=== PATIENT | male | born 1960 | race Hispanic/Latino ===

== ENCOUNTER 2018-07-01 06:07 | Emergency (ER) | payer BC ==
[2018-07-01 06:56] LABS: Absolute Lymphocytes (CBC) 1.7 K/uL (0.7-4.9); Absolute Monocytes 0.6 K/uL (0.1-1.3); Basophils % 0.6 % (0-1.3); Hematocrit 48.5 % (39.6-49.0); Lymphocytes % 24.7 % (15.3-44.8); MPV 9.5 fL (7.6-11.3); Monocytes % 8.7 % (3.3-12.3); RBC Red Blood Cell Count 5.53 M/uL (4.33-5.43)
[2018-07-01 06:59] LABS: Protime INR 0.99
[2018-07-01] MEDS ORDERED: ONDANSETRON 4 MG/2 ML VIAL ONE (07:08)
[2018-07-01 07:16] LABS: ALT/SGPT 38 U/L (12-78); AST/SGOT 15 U/L (15-37); Albumin 3.9 g/dL (3.4-5.0); Alkaline Phosphatase 104 U/L (45-117); BUN Blood Urea Nitrogen 17 mg/dL (7-18); Bicarbonate 27 mmol/L (21-32); Bilirubin Direct 0.2 mg/dL (0-0.2); Bilirubin Total 0.9 mg/dL (0.2-1.0); Glucose Level 115 mg/dL (74-106); NT PRO-BNP 115 pg/mL (<125); Potassium 3.3 mmol/L (3.5-5.1); Protein, Total 7.3 g/dL (6.4-8.2); Sodium Level 142 mmol/L (136-145); Troponin (Emerg Dept Use Only) < 0.02 ng/mL (0.0-0.045)
--- NOTE | 2018-07-01 09:12 | RAD REPORT ---
EXAM DESCRIPTION: CT - Head Brain Wo Cont - 07/01/2018 7:04 am CLINICAL HISTORY: Dizziness COMPARISON: None. TECHNIQUE: Computed axial tomography of the head was obtained. IV contrast was not requested. All CT scans are performed using dose optimization technique as appropriate and may include automated exposure control or mA/KV adjustment according to patient size. FINDINGS: An intracranial bleed is not seen . The ventricles are normal in caliber. No extra-axial fluid collection is noted. Fluid is present within the left maxillary sinus. Mucoperiosteal thickening also involves maxillary e thmoid sinuses. Fluid within mastoid is not seen IMPRESSION: No acute intracranial abnormality is seen. If patient's symptoms persist MRI of the bra in would be recommended. Acute and chronic sinusitis
--- NOTE | 2018-07-01 09:17 | ER ---
Nurse's Notes [facility] Name: Adrian Kang Age: 58 yrs Sex: Male : 1960 Arrival Date: 07/01/2018 Time: 06:11 Bed 19 Private MD: Cullen Pierson Diagnosis: Dizziness and giddiness Presentation: 07/01 06:13 Presenting complaint: Patient states: I have had double vision and dizziness since jb4 yesterday at 8pm. 06:13 Transition of care: patient was not received from another setting of care. Onset of jb4 symptoms was June 30, 2018. Risk Assessment: Do you want to hurt yourself or someone else? Patient reports no desire to harm self or others. Initial Sepsis Screen: Does the patient meet any 2 criteria? No. Patient's initial sepsis screen is negative. Does the patient have a suspected source of infection? No. Patient's initial sepsis screen is negative. Care prior to arrival: None. 06:13 Method Of Arrival: Ambulatory jb4 06:13 Acuity: YOEL 3 jb4 Triage Assessment: 06:13 General: Appears in no apparent distress. comfortable, Behavior is calm, cooperative, jb4 appropriate for age, Pt reports that double vision and dizziness started approximately 2000 yesterday. This morning upon awakening he took his blood pressure medication and reports that his double vision cleared up. Denies pain. Currently denies having double vision or dizziness.. Pain: Denies pain. EENT: No deficits noted. Neuro: Level of Consciousness is awake, alert, obeys commands, Oriented to person, place, time, situation, Moves all extremities. Full function Gait is steady, Speech is normal, Facial symmetry appears normal, Pupils are PERRLA. Cardiovascular: Patient's skin is warm and dry. Rhythm is sinus rhythm. Respiratory: Airway is patent Respiratory effort is even, unlabored, Respiratory pattern is regular, symmetrical. GI: No signs and/or symptoms were reported involving the gastrointestinal system. : No signs and/or symptoms were reported regarding the genitourinary system. Derm: Skin is intact, Skin is pink, warm \T\ dry. Musculoskeletal: Circulation, motion, and sensation intact. Range of motion: intact in all extremities. Historical: - Allergies: 06:13 Bactrim; jb4 06:13 seasonal; jb4 - Home Meds: 06:13 losartan 100 mg oral tab [Active]; Bystolic oral oral [Active]; jb4 - PMHx: 06:13 Hypertension; gallstones; jb4 - PSHx: 06:13 Cholecystectomy; jb4 - Immunization history:: Adult Immunizations up to date, Flu vaccine is not up to date. - Social history:: Smoking status: Patient/guardian denies using tobacco, Patient uses alcohol, weekly. - Ebola Screening: : No symptoms or risks identified at this time. Screenin:13 Abuse screen: Denies threats or abuse. Nutritional screening: No deficits noted. jb4 Tuberculosis screening: No symptoms or risk factors identified. Fall Risk None identified. Assessment: 06:13 General: see triage assessment.. jb4 06:40 Reassessment: Pt reports being nauseous, provider notified, see [facility] for orders. jb4 07:08 Reassessment: Patient appears in no apparent distress at this time. Patient and/or [facility] family updated on plan of care and expected duration. Pain level reassessed. Patient is alert, oriented x 3, equal unlabored respirations, skin warm/dry/pink. Reports nausea, medicated as ordered. 08:00 Reassessment: Patient appears in no apparent distress at this time. Patient and/or jl7 family updated on plan of care and expected duration. Pain level reassessed. Patient is alert, oriented x 3, equal unlabored respirations, skin warm/dry/pink. Patient states symptoms have improved. 09:00 Reassessment: Patient appears in no apparent distress at this time. No changes from [facility] previously documented assessment. Patient and/or family updated on plan of care and expected duration. Pain level reassessed. Patient is alert, oriented x 3, equal unlabored respirations, skin warm/dry/pink. Vital Signs: 06:13 BP 144 / 77; Pulse 68; Resp 16; Temp 97.9(O); Pulse Ox 97% on R/A; Weight 81.65 kg (R); jb4 Height 5 ft. 8 in. (172.72 cm) (R); Pain 0/10; 07:08 BP 146 / 79; Pulse 63; Resp 16 S; Pulse Ox 97% on R/A; jl7 08:14 BP 124 / 72 Supine; Pulse 51; Resp 16 S; Pulse Ox 99% on R/A; jl7 08:16 BP 143 / 82 Sitting; Pulse 54; Resp 16 S; Pulse Ox 99% on R/A; Pain 0/10; jl7 08:18 BP 137 / 75 Standing; Pulse 53; Resp 16 S; Pulse Ox 99% on R/A; jl7 09:23 BP 124 / 74; Pulse 59; Resp 16 S; Pulse Ox 100% on R/A; Pain 0/10; jl7 06:13 Body Mass Index 27.37 (81.65 kg, 172.72 cm) jb4 NIH Stroke Scale Scores: 08:16 NIHSS Score: 0 kb ED Course: 06:11 Patient arrived in ED. es 06:12 Cullen Pierson MD is Private Physician. es 06:13 Arm band placed on left wrist. jb4 06:13 Patient has correct armband on for positive identification. Placed in gown. Bed in low jb4 position. Call light in reach. Side rails up X 1. Pulse ox on. NIBP on. 06:20 Vianney León FNP-C is PHCP. kb 06:20 Esteban Garcias MD is Attending Physician. kb 06:25 Initial lab(s) drawn, by me, sent to lab. Inserted saline lock: 20 gauge in right jb4 forearm, using aseptic technique. Blood collected. 06:34 Triage completed. jb4 06:41 CT Head Brain wo Cont Sent. ms 07:04 CT Head Brain wo Cont In Process Unspecified. EDMS 07:07 Brenda Weaver, RN is Primary Nurse. jl7 09:16 Cullen Pierson MD is Referral Physician. kb 09:23 No provider procedures requiring assistance completed. IV discontinued, intact, jl7 bleeding controlled, No redness/swelling at site. Pressure dressing applied. Administered Medications: 07:08 Drug: Zofran 4 mg Route: IVP; Site: right forearm; jl7 07:30 Follow up: Response: No adverse reaction; Nausea is decreased jl7 Point of Care Testing: Blood Glucose: 06:13 Blood Glucose: 111 mg/dL; jb4 Ranges: Outcome: 09:16 Discharge ordered by . kb 09:23 Discharged to home ambulatory. jl7 09:23 Condition: stable 09:23 Discharge instructions given to patient, family, Instructed on discharge instructions, follow up and referral plans. Demonstrated understanding of instructions, follow-up care. 09:24 Patient left the ED. jl7 NIH Stroke Scale - NIH Stroke Score Date: 07/01/2018 Time: 08:16 Total Score = 0 1a. Level of Consciousness (LOC) - 0(Alert) 1b. Level of Consciousness (LOC) (Year \T\ Age) - 0(Both) 1c. LOC Commands (Open \T\ Closes Eyes/Whale Trainer) - 0(Both) 2. Best Gaze (Lateral Gaze Paresis) - 0(Normal) 3. Visual Field Loss - 0(No visual loss) 4. Facial Palsy - 0(Normal) 5a. Left Arm: Motor (10-second hold) - 0(No drift) 5b. Right Arm: Motor (10-second hold) - 0(No drift) 6a. Left Leg: Motor (5-second hold - always test supine) - 0(No drift) 6b. Right Leg: Motor (5-second hold - always test supine) - 0(No drift) 7. Limb Ataxia (finger/nose \T\ heel/foss - test with eyes open) - 0(Absent) 8. Sensory Loss (pinprick arms/legs/face) - 0(Normal) 9. Best Language: Aphasia (description/naming/reading) - 0(No aphasia) 10. Dysarthria (speech clarity - read or repeat words) - 0(Normal) 11. Extinction and Inattention (visual/tactile/auditory/spatial/personal) - 0(No abnormality) Initials: kb Signatures: Dispatcher [employer] EDVianney Quezada, SUPERVISOR OF COMMUNICATIONS-C SUPERVISOR OF COMMUNICATIONS-CkCallie Banuelos Maria ms Bryson, James RN RN jb4 Brenda Weaver RN RN jl7 Corrections: (The following items were deleted from the chart) 06:43 06:13 General: Appears in no apparent distress. comfortable, Behavior is calm, toñito cooperative, appropriate for age, toñito 08:16 08:00 BP 121 / 66; Pulse 52bpm; Resp 16bpm; Spontaneous; Pulse Ox 99% RA; Pain jl7 0/10; jl7 08:26 08:16 BP 121 / 66; Pulse 52bpm; Resp 16bpm; Spontaneous; Pulse Ox 99% RA; Pain jl7 0/10; jl7
--- NOTE | 2018-07-01 09:18 | EDPHYS ---
Physician Documentation [facility] Name: Adrian Kang Age: 58 yrs Sex: Male : 1960 Arrival Date: 07/01/2018 Time: 06:11 Bed 19 Private MD: Cullen Pierson ED Physician Esteban Garcias HPI: 07/01 08:17 This 58 yrs old Male presents to ER via Ambulatory with complaints of Double kb vision, Dizziness, High Blood Pressure. 08:18 The patient presents with lightheadedness. Onset: The symptoms/episode began/occurred kb last night. Context: occurred at home, occurred while the patient was at rest. Modifying factors: The symptoms are alleviated by nothing, the symptoms are aggravated by nothing. Associated signs and symptoms: Pertinent positives: "shaky." blurred vision when he woke up, now resolved. Severity of symptoms: At their worst the symptoms were moderate in the emergency department the symptoms have improved. Patient's baseline: Neuro: alert and fully oriented, Motor: no deficits, Ambulation: walks without assistance, Speech: normal. The patient has not experienced similar symptoms in the past. The patient has not recently seen a physician. 08:19 Pt reports blurred vision and lightheadedness that started at 2000 last night. States kb he still had symptoms when he woke up this morning so he took his losartan and came in to get checked out. Reports he still has slight lightheadedness, but vision is normal. Historical: - Allergies: 06:13 Bactrim; jb4 06:13 seasonal; jb4 - Home Meds: 06:13 losartan 100 mg oral tab [Active]; Bystolic oral oral [Active]; jb4 - PMHx: 06:13 Hypertension; gallstones; jb4 - PSHx: 06:13 Cholecystectomy; jb4 - Immunization history:: Adult Immunizations up to date, Flu vaccine is not up to date. - Social history:: Smoking status: Patient/guardian denies using tobacco, Patient uses alcohol, weekly. - Ebola Screening: : No symptoms or risks identified at this time. ROS: 08:16 Constitutional: Negative for fever, chills, and weight loss, Eyes: Negative for injury, kb pain, redness, and discharge, ENT: Negative for injury, pain, and discharge, Neck: Negative for injury, pain, and swelling, Cardiovascular: Negative for chest pain, palpitations, and edema, Respiratory: Negative for shortness of breath, cough, wheezing, and pleuritic chest pain, Abdomen/GI: Negative for abdominal pain, nausea, vomiting, diarrhea, and constipation, Back: Negative for injury and pain, : Negative for injury, bleeding, discharge, and swelling, MS/Extremity: Negative for injury and deformity, Skin: Negative for injury, rash, and discoloration. 08:16 Neuro: Positive for dizziness, lightheaded, "shaky". Exam: 06:36 ECG was reviewed by the Attending Physician. kb 08:16 Constitutional: This is a well developed, well nourished patient who is awake, alert, kb and in no acute distress. Head/Face: Normocephalic, atraumatic. Eyes: Pupils equal round and reactive to light, extra-ocular motions intact. Lids and lashes normal. Conjunctiva and sclera are non-icteric and not injected. Cornea within normal limits. Periorbital areas with no swelling, redness, or edema. ENT: Nares patent. No nasal discharge, no septal abnormalities noted. Tympanic membranes are normal and external auditory canals are clear. Oropharynx with no redness, swelling, or masses, exudates, or evidence of obstruction, uvula midline. Mucous membranes moist. Neck: Trachea midline, no thyromegaly or masses palpated, and no cervical lymphadenopathy. Supple, full range of motion without nuchal rigidity, or vertebral point tenderness. No Meningismus. Chest/axilla: Normal chest wall appearance and motion. Nontender with no deformity. No lesions are appreciated. Cardiovascular: Regular rate and rhythm with a normal S1 and S2. No gallops, murmurs, or rubs. Normal PMI, no JVD. No pulse deficits. Respiratory: Lungs have equal breath sounds bilaterally, clear to auscultation and percussion. No rales, rhonchi or wheezes noted. No increased work of breathing, no retractions or nasal flaring. Abdomen/GI: Soft, non-tender, with normal bowel sounds. No distension or tympany. No guarding or rebound. No evidence of tenderness throughout. Skin: Warm, dry with normal turgor. Normal color with no rashes, no lesions, and no evidence of cellulitis. MS/ Extremity: Pulses equal, no cyanosis. Neurovascular intact. Full, normal range of motion. Neuro: Awake and alert, GCS 15, oriented to person, place, time, and situation. Cranial nerves II-XII grossly intact. Motor strength 5/5 in all extremities. Sensory grossly intact. Cerebellar exam normal. Normal gait. Vital Signs: 06:13 BP 144 / 77; Pulse 68; Resp 16; Temp 97.9(O); Pulse Ox 97% on R/A; Weight 81.65 kg (R); jb4 Height 5 ft. 8 in. (172.72 cm) (R); Pain 0/10; 07:08 BP 146 / 79; Pulse 63; Resp 16 S; Pulse Ox 97% on R/A; jl7 08:14 BP 124 / 72 Supine; Pulse 51; Resp 16 S; Pulse Ox 99% on R/A; jl7 08:16 BP 143 / 82 Sitting; Pulse 54; Resp 16 S; Pulse Ox 99% on R/A; Pain 0/10; jl7 08:18 BP 137 / 75 Standing; Pulse 53; Resp 16 S; Pulse Ox 99% on R/A; jl7 09:23 BP 124 / 74; Pulse 59; Resp 16 S; Pulse Ox 100% on R/A; Pain 0/10; jl7 06:13 Body Mass Index 27.37 (81.65 kg, 172.72 cm) jb4 NIH Stroke Scale Scores: 08:16 NIHSS Score: 0 kb MDM: 06:20 Patient medically screened. 08:16 Data reviewed: vital signs, nurses notes. Data interpreted: Pulse oximetry: on room air kb is 97 %. Interpretation: normal. 09:16 Counseling: I had a detailed discussion with the patient and/or guardian regarding: the kb historical points, exam findings, and any diagnostic results supporting the discharge/admit diagnosis, lab results, radiology results, the need for outpatient follow up, a family practitioner, a neurologist, to return to the emergency department if symptoms worsen or persist or if there are any questions or concerns that arise at home. 09:17 ED course: Pt reports all symptoms have resolved and he is feeling better. kb 07/01 06:20 Order name: Basic Metabolic Panel; Complete Time: 07:17 kb 07/01 06:20 Order name: CBC with Diff; Complete Time: 07:13 kb 04/02 06:20 Order name: LFT's; Complete Time: 07:17 kb 07/01 06:20 Order name: Magnesium; Complete Time: 07:17 kb 07/01 06:20 Order name: NT PRO-BNP; Complete Time: 07:17 kb 07/01 06:20 Order name: PT-INR; Complete Time: 07:13 kb 07/01 06:20 Order name: Troponin (emerg Dept Use Only); Complete Time: 07:17 kb 07/01 06:20 Order name: EKG; Complete Time: 06:21 kb 07/01 06:20 Order name: Cardiac monitoring; Complete Time: 06:40 kb 07/01 06:20 Order name: EKG - Nurse/Tech; Complete Time: 06:40 kb 07/01 06:20 Order name: IV Saline Lock; Complete Time: 06:40 kb 07/01 06:20 Order name: Labs collected and sent; Complete Time: 06:40 kb 07/01 06:20 Order name: CT Head Brain wo Cont; Complete Time: 09:14 kb 07/01 06:20 Order name: O2 Per Protocol; Complete Time: 06:41 kb 07/01 06:20 Order name: O2 Sat Monitoring; Complete Time: 06:41 kb 07/01 08:16 Order name: Orthostatics; Complete Time: 08:24 kb EC:36 Rate is 61 beats/min. Rhythm is regular, Normal Sinus Rhythm with No ectopy. QRS [place] kb is Normal. CA interval is normal at 160 msec. QRS interval is normal at 96 msec. QT interval is normal at 406 msec. Clinical impression: Normal ECG. Interpreted by me. Reviewed by me. Administered Medications: 07:08 Drug: Zofran 4 mg Route: IVP; Site: right forearm; jl7 07:30 Follow up: Response: No adverse reaction; Nausea is decreased jl7 Point of Care Testing: Blood Glucose: 06:13 Blood Glucose: 111 mg/dL; jb4 Ranges: Critical Glucose Levels:Adult <50 mg/dl or >400 mg/dl <40 mg/dl or >180 mg/dl Disposition: 07/02 07:23 Co-signature as Attending Physician, Esteban Garcias MD I agree with the assessment and tw4 plan of care. Disposition: 07/01/18 09:16 Discharged to Home. Impression: Dizziness and giddiness. - Condition is Stable. - Discharge Instructions: Dizziness, [id number]. - Medication Reconciliation Form, Thank You Letter, Antibiotic Education, Prescription Opioid Use form. - Follow up: Emergency Department; When: As needed; Reason: Trouble breathing. Follow up: Cullen Pierson MD; When: 2 - 3 days; Reason: Recheck today's complaints, Continuance of care, Re-evaluation by your physician. NIH Stroke Scale - NIH Stroke Score Date: 07/01/2018 Time: 08:16 Total Score = 0 1a. Level of Consciousness (LOC) - 0(Alert) 1b. Level of Consciousness (LOC) (Year \\T\\ Age) - 0(Both) 1c. LOC Commands (Open \\T\\ Closes Eyes/Roller Skate Assembler) - 0(Both) 2. Best Gaze (Lateral Gaze Paresis) - 0(Normal) 3. Visual Field Loss - 0(No visual loss) 4. Facial Palsy - 0(Normal) 5a. Left Arm: Motor (10-second hold) - 0(No drift) 5b. Right Arm: Motor (10-second hold) - 0(No drift) 6a. Left Leg: Motor (5-second hold - always test supine) - 0(No drift) 6b. Right Leg: Motor (5-second hold - always test supine) - 0(No drift) 7. Limb Ataxia (finger/nose \\T\\ heel/foss - test with eyes open) - 0(Absent) 8. Sensory Loss (pinprick arms/legs/face) - 0(Normal) 9. Best Language: Aphasia (description/naming/reading) - 0(No aphasia) 10. Dysarthria (speech clarity - read or repeat words) - 0(Normal) 11. Extinction and Inattention (visual/tactile/auditory/spatial/personal) - 0(No abnormality) Initials: kb Signatures: Dispatcher [employer] EDVianney Quezada, HOME SCHOOL TEACHER-C HOME SCHOOL TEACHER-CkCullen Saunders, RN RN jb4 Brenda Weaver RN RN jl7 Esteban Garcias MD MD tw4 Corrections: (The following items were deleted from the chart) 07/01 09:24 09:16 07/01/2018 09:16 Discharged to Home. Impression: Dizziness and giddiness. jl7 Condition is Stable. Forms are Medication Reconciliation Form, Thank You Letter, Antibiotic Education, Prescription Opioid Use. Follow up: Emergency Department; When: As needed; Reason: Trouble breathing. Follow up: Cullen Pierson; When: 2 - 3 days; Reason: Recheck today's complaints, Continuance of care, Re-evaluation by your physician. kb
== END 2018-07-01 09:24 | disposition home or self-care (01) ==
LOC: ER 06:07
DX: R42 Dizziness and giddiness (principal); I10 Essential (primary) hypertension; Z88.1 Allergy status to other antibiotic agents
CPT/HCPCS: 36415; 70450; 80048; 80076; 82962; 83735; 83880; 84484; 85025; 85610; 93005; 96374; 99284; J2405

== ENCOUNTER 2019-12-14 10:44 | Emergency (ER) | payer BC ==
--- OUTSIDE RECORDS SUMMARY | 2019-12-14 10:49 | XMS REPORT | Summary of Care ---
:1960 Author Organization [facility] Address [address] [place] [id number] Care Team Providers Name Role Phone Cullen Pierson MD Primary Care Provider [phone] Reason for Visit Reason Comments Refill Request Encounter Details Date Type Department Care Team Description 09/23/2019 Refill [facility] Cullen Garibay MD Refill Request - [address] [place] [address] Dr [place] [place] [address] [place] [address] [phone] Allergies Active Allergy Reactions Severity Noted Date Comments Sulfa (Sulfonamide Antibiotics) Unknown - See comments 02/04/2015 documented as of this encounter (statuses as of 09/23/2019) Medications Medication Sig Dispensed Refills Start Date End Date Status losartan 100 mg Take 100 mg by 0 Active tablet mouth daily. atorvastatin 10 mg 0 07/15/2018 Active tablet nebivolol Take 10 mg by 0 Active (BYSTOLIC) 10 mg mouth daily. tablet BABY ASPIRIN ORAL Take 81 mg by 0 Active mouth daily. ALBUTEROL 90 INHALE 2 PUFFS 8.5 g 5 06/26/2019 A ctive mcg/actuation BY MOUTH EVERY inhalerIndications 6 HOURS : Bronchitis with NEEDED FOR bronchospasm WHEEZING OR SHORTNESS OF BREATH ADVAIR DISKUS INHALE 1 PUFF 60 Each 0 09/23/2019 A ctive 250-50 mcg/dose BY MOUTH TWICE inhalation DAILY diskIndications: Mild intermittent asthma without complication ADVAIR DISKUS INHALE 1 PUFF 60 Each 0 08/20/2019 09/23/2019 Discontinued 250-50 mcg/dose BY MOUTH TWICE inhalation DAILY diskIndications: Mild intermittent asthma without complication documented as of this encounter (statuses as of 09/23/2019) Active Problems Problem Noted Date Mild intermittent asthma 02/04/2015 documented as of this encounter (statuses as of 09/23/2019) Immunizations Name Administration Dates Next Due Influenza Virus Vaccine Quad .5 mL IM 6+ MO 01/20/2019 documented as of this encounter Social History Tobacco Use Types Packs/Day Years Used Date Former Smoker Quit: 02/05/20 06 Smokeless Tobacco: Never Used Alcohol Use Drinks/Week oz/Week Comments Yes 0 Standard drinks or equivalent 0.0 twice a week Sex Assigned at Date Recorded Not on file Job Start Date Occupation Industry Not on file Not on file Not on file Travel History Travel Start Travel End No recent travel history available. documented as of this encounter Last Filed Vital Signs Not on filedocumented in this encounter Plan of Treatment Health Maintenance Due Date Last Done Comments HEPATITIS C (HCV) SCREEN 1960 PNEUMOCOCCAL 0-64 YEARS COMBINED SERIES (1 of 1 - 02/24/1966 PPSV23) DTaP,Tdap,and Td Vaccines (1 - Tdap) 02/24/1971 COLONOSCOPY 02/24/2010 Zoster Recombinant Vaccine (SHINGRIX) (1 of 2) 02/24/2010 LUNG CANCER SCREEN: Recommended for age 55-80 with 30 02/24/2015 + pack year history Depression Screening 03/12/2020 03/12/2019 INFLUENZA VACCINE Completed 01/20/2019 documented as of this encounter Results Not on filedocumented in this encounter Visit Diagnoses Diagnosis Mild intermittent asthma without complic ation Unspecified asthma documented in this encounter Insurance Payer Benefit Plan Subscriber ID Effective Dates Phone Address Type / Group [facility] OF [facility] [id number] 2012-Anil [phone] [address] [place] [id number] [place] [address] documented as of this encounter
--- OUTSIDE RECORDS SUMMARY | 2019-12-14 10:49 | XMS REPORT | Summary of Care ---
:1960 Author Organization [facility] - [facility] Address [address] [place] [address] Care Team Providers Name Role Phone Cullen Pierson MD Primary Care Provider [phone] Reason for Visit Reason Comments Rx Concern/Question Encounter Details Date Type Department Care Team Description 10/19/2019 Telephone [facility] Family Cullen Pierson Rx Conc bismark/Question Medicine - Davie Aj MD [address] [place] [address] Dr livingston [address] [place] [address] [place] [address] [place] [phone] Allergies Active Allergy Reactions Severity Noted Date Comments Sulfa (Sulfonamide Antibiotics) Unknown - See comments 02/04/2015 documented as of this encounter (statuses as of 10/21/2019) Medications Medication Sig Dispensed Refills Start Date End Date Status losartan 100 mg tablet Take 100 mg by 0 Active mouth daily. atorvastatin 10 mg 0 07/15/2018 Active tablet nebivolol (BYSTOLIC) Take 10 mg by 0 Active 10 mg tablet mouth daily. BABY ASPIRIN ORAL Take 81 mg by 0 Active mouth daily. ALBUTEROL 90 INHALE 2 PUFFS BY 8.5 g 5 06/26/2019 Active mcg/actuation MOUTH EVERY 6 inhalerIndications: HOURS NEEDED Bronchitis with FOR WHEEZING OR bronchospasm SHORTNESS OF BREATH ADVAIR DISKUS 250-50 INHALE 1 PUFF BY 60 Each 0 10/06/2019 Active mcg/dose inhalation MOUTH TWICE DAILY diskIndications: Mild intermittent asthma without complication documented as of this encounter (statuses as of 10/21/2019) Active Problems Problem Noted Date Mild intermittent asthma 02/04/2015 documented as of this encounter (statuses as of 10/21/2019) Immunizations Name Administration Dates Next Due Influenza [...] with 30 02/24/2015 + pack year history INFLUENZA VACCINE (#1) 2019 01/20/2019 Depression Screening 03/12/2020 03/12/2019 documented as of this encounter Results Not on filedocumented in this encounter Insurance Payer Benefit Plan Subscriber ID Effective Dates Phone Address Type / Group [place] [id number] 2012-Anil [phone] [address] PPO/POS [facility] 7 [id number] [place] [address] documented as of this encounter
--- OUTSIDE RECORDS SUMMARY | 2019-12-14 10:49 | XMS REPORT | Summary of Care ---
:1960 Author Organization [facility] - [facility] Address [address] [place] [address] Care Team Providers Name Role Phone Cullen Pierson MD Primary Care Provider [phone] Reason for Visit Reason Comments Refill Request Encounter Details Date Type Department Care Team Description 10/06/2019 Refill [facility] Family Medicine Cullen Garibay MD Refill Request - [address] [place] [address] Dr livingston [facility] [address] [place] [address] [phone] Allergies Active Allergy Reactions Severity Noted Date Comments Sulfa (Sulfonamide Antibiotics) Unknown - See comments 02/04/2015 documented as of this encounter (statuses as of 10/06/2019) Medications Medication Sig Dispensed Refills Start Date [...] DISKUS INHALE 1 PUFF 60 Each 0 10/06/2019 A ctive 250-50 mcg/dose BY MOUTH TWICE inhalation DAILY diskIndications: Mild intermittent asthma without complication ADVAIR DISKUS INHALE 1 PUFF 60 Each 0 09/23/2019 10/06/2019 Discontinued 250-50 mcg/dose BY MOUTH TWICE inhalation DAILY diskIndications: Mild intermittent asthma without complication documented as of this encounter (statuses as of 10/06/2019) Active Problems Problem Noted Date Mild intermittent asthma 02/04/2015 documented as of this encounter (statuses as of 10/06/2019) Immunizations Name Administration Dates Next Due Influenza [...] Phone Address Type / Group BCBS OF [facility] [id number] 2012-Anil [phone] [address] PPO/POS [place] 7 [id number] [place] [address] documented as of this encounter
--- OUTSIDE RECORDS SUMMARY | 2019-12-14 10:49 | XMS REPORT | Summary of Care ---
:1960 Author Organization [facility] - [facility] Address [address] [place] [address] Care Team Providers Name Role Phone Cullen Pierson MD Primary Care Provider [phone] Reason for Visit Reason Comments Assessment Encounter Details Date Type Department Care Team Description 10/13/2019 Telephone [facility] Pediatric and Cullen Martínez MD Assessment Adult Primary Care- [address] [place] [address] [place] [address], [address] [place] [address] Allergies Active Allergy Reactions Severity Noted Date Comments Sulfa (Sulfonamide Antibiotics) Unknown - See comments 02/04/2015 documented as of this encounter (statuses as of 10/13/2019) Medications Medication Sig Dispensed Refills Start Date [...] as of this encounter (statuses as of 10/13/2019) Active Problems Problem Noted Date Mild intermittent asthma 02/04/2015 documented as of this encounter (statuses as of 10/13/2019) Immunizations Name Administration Dates Next Due Influenza [...] Type / Group BCBS OF [place] [id number] 2012-Anil [phone] [address] PPO/POS [facility] 7 [id number] [place] [address] documented as of this encounter
--- OUTSIDE RECORDS SUMMARY | 2019-12-14 10:49 | XMS REPORT | Summary of Care ---
:1960 Author Organization [facility] - [facility] Address [address] [place] [address] Care Team Providers Name Role Phone Cullen Pierson MD Primary Care Provider [phone] Reason for Visit Reason Comments Rx Concern/Question Encounter Details Date Type Department Care Team Description 10/07/2019 Telephone [facility] AF[facility] Family Cullen Pierson Rx Conc bismark/Question Medicine - Davie Aj MD [address] [place] [address] Dr livingston [address] [place] [address] [place] [address] [place] [phone] Allergies Active Allergy Reactions Severity Noted Date Comments Sulfa (Sulfonamide Antibiotics) Unknown - See comments 02/04/2015 documented as of this encounter (statuses as of 10/07/2019) Medications Medication Sig Dispensed Refills Start Date [...] as of this encounter (statuses as of 10/07/2019) Active Problems Problem Noted Date Mild intermittent asthma 02/04/2015 documented as of this encounter (statuses as of 10/07/2019) Immunizations Name Administration Dates Next Due Influenza [...] Type / Group BCBS OF [place] [id number] 2012-Anil [phone] [address] PPO/POS [facility] 7 [id number] [place] [address] documented as of this encounter
--- OUTSIDE RECORDS SUMMARY | 2019-12-14 10:49 | XMS REPORT | Summary of Care ---
:1960 Author Organization [facility] - [facility] Address [address] [place] [address] Care Team Providers Name Role Phone Cullen Pierson MD Primary Care Provider [phone] Reason for Visit Reason Comments Assessment Encounter Details Date Type Department Care Team Description 10/14/2019 Telephone [facility] Pediatric and Cullen Martínez MD Assessment Adult Primary Care- [address] [place] [address] [place] [address], [address] [place] [address] Allergies Active Allergy Reactions Severity Noted Date Comments Sulfa (Sulfonamide Antibiotics) Unknown - See comments 02/04/2015 documented as of this encounter (statuses as of 10/15/2019) Medications Medication Sig Dispensed Refills Start Date [...] as of this encounter (statuses as of 10/15/2019) Active Problems Problem Noted Date Mild intermittent asthma 02/04/2015 documented as of this encounter (statuses as of 10/15/2019) Immunizations Name Administration Dates Next Due Influenza [...] Type / Group BCBS OF [place] [id number] 2012-Anil [phone] [address] PPO/POS [facility] 7 [id number] [place] [address] documented as of this encounter
--- OUTSIDE RECORDS SUMMARY | 2019-12-14 10:49 | XMS REPORT | Summary of Care ---
:1960 Author Organization [facility] - [facility] Address [address] [place] [address] Care Team Providers Name Role Phone Cullen Pierson MD Primary Care Provider [phone] Reason for Visit Reason Comments Refill Request Encounter Details Date Type Department Care Team Description 10/28/2019 Refill [facility] Family Medicine Cullen Garibay MD Refill Request - [address] [place] [address] Dr livingston [facility] [place] [address] [place] [address] [phone] Allergies Active Allergy Reactions Severity Noted Date Comments Sulfa (Sulfonamide Antibiotics) Unknown - See comments 02/04/2015 documented as of this encounter (statuses as of 10/28/2019) Medications Medication Sig Dispensed Refills Start Date [...] DISKUS INHALE 1 PUFF 60 Each 0 10/28/2019 A ctive 250-50 mcg/dose BY MOUTH TWICE inhalation DAILY diskIndications: Mild intermittent asthma without complication ADVAIR DISKUS INHALE 1 PUFF 60 Each 0 10/06/2019 10/28/2019 Discontinued 250-50 mcg/dose BY MOUTH TWICE inhalation DAILY diskIndications: Mild intermittent asthma without complication documented as of this encounter (statuses as of 10/28/2019) Active Problems Problem Noted Date Mild intermittent asthma 02/04/2015 documented as of this encounter (statuses as of 10/28/2019) Immunizations Name Administration Dates Next Due Influenza [...] Phone Address Type / Group BCBS OF [facility] [id number] 2012-Prese [phone] [address] PPO/POS [place] nt 7 [id number] [place] [address] documented as of this encounter
--- OUTSIDE RECORDS SUMMARY | 2019-12-14 10:49 | XMS REPORT | Continuity of Care Document ---
:1960 Author Organization [facility] t Address [address] [place] [address] Care Team Providers Name Role Phone Cullen Pierson MD Attending Clinician Problems This patient has no known problems. Allergies, Adverse Reactions, Alerts This patient has no known allergies or adverse reactions. Medications This patient has no known medications. Procedures This patient has no known procedures. Encounters Start End Encounter Admission Attending Care Care Encounter Source Date/Time Date/Time Type Type Clinicians Facility Department ID 2019-12-08 2019-12-08 [facility] [id number] 00:00:00 00:00:00 [facility] [id number] [facility] [id number] Professio [phone] [place] [address] Office [address] One 2019-12-02 2019-12-02 [facility] [id number] 00:00:00 00:00:00 [facility] [id number] [facility] [id number] Professio [phone] [place] [address] Building 2019-10-28 2019-10-28 [facility] [id number] 00:00:00 00:00:00 [facility] [id number] [facility] [place] [facility] [id number] Professio [phone] [place] [address] Office [address] One 2019-10-19 2019-10-19 [facility] [id number] 00:00:00 00:00:00 [facility] [id number] [facility] [id number] Professio [phone] [address] 2019-10-14 2019-10-14 [facility] [id number] 00:00:00 00:00:00 [facility] [id number] [place] [id number] Professio [phone] [address] 2019-10-13 2019-10-13 [facility] [id number] 00:00:00 00:00:00 [facility] [id number] [facility] [place] [id number] Professio [phone] [address] 2019-10-07 2019-10-07 [facility] [id number] 00:00:00 00:00:00 [facility] [id number] [facility] [id number] Professio [phone] [address] 2019-10-06 2019-10-06 [facility] [id number] 00:00:00 00:00:00 [facility] [id number] [facility] [id number] Professio [phone] [address] 2019-09-23 2019-09-23 [facility] [id number] 00:00:00 00:00:00 [facility] [id number] [facility] [id number] Professio [phone] [address] 2019-08-20 2019-08-20 [facility] [id number] 00:00:00 00:00:00 [facility] [id number] [facility] [id number] Professio [phone] [facility] Office Building One 2019-06-26 2019-06-26 [facility] [id number] 00:00:00 00:00:00 [facility] [id number] Edward [facility] [id number] Professio [phone] [place] [address] Office [address] One 2019-06-25 2019-06-25 [facility] [id number] 00:00:00 00:00:00 [facility] [id number] [facility] [id number] Professio [phone] nal [facility] Office Building One 2019-06-01 2019-06-[address] [facility] [id number] 15:06:08 15:21:08 Visit [facility] [id number] [facility] [id number] Professio [phone] [place] [address] [address] One Results This patient has no known results.
--- OUTSIDE RECORDS SUMMARY | 2019-12-14 10:50 | XMS REPORT | Summary of Care ---
:1960 Author Organization [facility] - [facility] Address [address] [place] [address] Care Team Providers Name Role Phone Cullen Pierson MD Primary Care Provider [phone] Reason for Visit Reason Comments Assessment Encounter Details Date Type Department Care Team Description 12/02/[address] [facility] Pediatric and Cullen Martínez MD Assessment Adult Primary Care- [address] [place] [address] [place] [address], [address] [place] [address] Allergies Active Allergy Reactions Severity Noted Date Comments Sulfa (Sulfonamide Antibiotics) Unknown - See comments 02/04/2015 documented as of this encounter (statuses as of 12/03/2019) Medications Medication Sig Dispensed Refills Start Date [...] INHALE 1 PUFF BY 60 Each 0 10/28/2019 Active mcg/dose inhalation MOUTH TWICE DAILY diskIndications: Mild intermittent asthma without complication documented as of this encounter (statuses as of 12/03/2019) Active Problems Problem Noted Date Mild intermittent asthma 02/04/2015 documented as of this encounter (statuses as of 12/03/2019) Immunizations Name Administration Dates Next Due Influenza Virus Vaccine Quad .5 mL IM 6+ MO 01/20/2019 documented as of this encounter Social History Tobacco Use Types Packs/Day Years Used Date Former Smoker Quit: 02/05/20 06 Smokeless Tobacco: Never Used Alcohol Use Drinks/Week oz/Week Comments Yes 0 Standard drinks or equivalent 0.0 twice a week Sex Assigned at Date Recorded Not on file documented as of this encounter Last Filed Vital Signs Not on filedocumented in this encounter Miscellaneous Notes Telephone Encounter - Lee Ann Webster - 12/02/2019 9:12 AM CDTAppeal request from BCBS placed in nurse box documented in this encounter Plan of Treatment Health Maintenance Due Date Last Done Comments HEPATITIS C (HCV) SCREEN 1960 PNEUMOCOCCAL 0-64 YEARS COMBINED SERIES (1 of 1 - 02/24/1966 PPSV23) DTaP,Tdap,and Td Vaccines (1 - Tdap) 02/24/1979 COLON CANCER SCREENING ANNUAL FIT/FOBT 02/24/2010 COLON CANCER SCREENING FIT DNA EVERY 3 YEARS 02/24/2010 COLON CANCER SCREENING SIGMOIDOSCOPY EVERY 5 YEARS 02/24/2010 COLONOSCOPY 02/24/2010 Colorectal Cancer Screening 02/24/2010 Zoster Recombinant Vaccine (SHINGRIX) (1 of 2) 02/24/2010 LUNG CANCER SCREEN: Recommended for age 55-80 with 30 02/24/2015 + pack year history INFLUENZA VACCINE (#1) 2019 01/20/2019 Depression Screening 03/12/2020 03/12/2019 documented as of this encounter Results Not on filedocumented in this encounter Insurance Payer Benefit Plan Subscriber ID Effective Dates Phone Address Type / Group BCBS OF [facility] [id number] 2012-Anil [phone] [address] PPO/POS [place] nt 7 [id number] [place] [address] documented as of this encounter
--- OUTSIDE RECORDS SUMMARY | 2019-12-14 10:50 | XMS REPORT | Summary of Care ---
:1960 Author Organization [facility] - [facility] Address [address] [place] [address] Care Team Providers Name Role Phone Cullen Pierson MD Primary Care Provider [phone] Reason for Visit Reason Comments Assessment Encounter Details Date Type Department Care Team Description 12/08/2019 Telephone [facility] Family Medicine Cullen Garibay MD Assessment - [address] [place] [address] Dr livingston [facility] [place] [address] [place] [address] [phone] Allergies Active Allergy Reactions Severity Noted Date Comments Sulfa (Sulfonamide Antibiotics) Unknown - See comments 02/04/2015 documented as of this encounter (statuses as of 12/09/2019) Medications Medication Sig Dispensed Refills Start Date [...] as of this encounter (statuses as of 12/09/2019) Active Problems Problem Noted Date Mild intermittent asthma 02/04/2015 documented as of this encounter (statuses as of 12/09/2019) Immunizations Name Administration Dates Next Due Influenza [...] Telephone Encounter - Lee Ann Webster - 12/08/2019 3:26 PM CDTBCBS sent appeal information placed in nurse box documented in this [...] Phone Address Type / Group BCBS OF [employer] OF [place] [id number] 2012-Anil [phone] [address] PPO/POS [place] nt 7 [id number] [place] [address] documented as of this encounter
--- NOTE | 2019-12-14 12:20 | ER ---
Nurse's Notes [facility] Name: Adrian Kang Age: 59 yrs Sex: Male : 1960 Arrival Date: 12/14/2019 Time: 10:46 Bed 6 Private MD: Diagnosis: Pain in right lower leg-fascial defect Presentation: 12/13 11:14 Chief complaint: Patient states: I felt something popped on my Lower R leg, I can see a ca1 formed bulge on there. Happened about an hour ago. Denies hx of blood clots. Denies injury to the R lower extremity. Reports intermittent pain on the Lower R leg, hurts more when standing, not so much when walking. Coronavirus screen: Client denies travel out of the [place] in the last 14 days. At this time, the client does not indicate any symptoms associated with coronavirus-19. Ebola Screen: Patient negative for fever greater than or equal to 101.5 degrees Fahrenheit, and additional compatible Ebola Virus Disease symptoms Patient denies exposure to infectious person. Patient denies travel to an Ebola-affected area in the 21 days before illness onset. No symptoms or risks identified at this time. Initial Sepsis Screen: Does the patient meet any 2 criteria? No. Patient's initial sepsis screen is negative. Does the patient have a suspected source of infection? No. Patient's initial sepsis screen is negative. Risk Assessment: Do you want to hurt yourself or someone else? Patient reports no desire to harm self or others. Onset of symptoms was December 14, 2019. 11:14 Method Of Arrival: Ambulatory ca1 11:14 Acuity: YOEL 4 ca1 Triage Assessment: 11:15 General: Appears in no apparent distress. comfortable, Behavior is cooperative, bp appropriate for age, anxious. Pain: Denies pain. EENT: No deficits noted. Neuro: No deficits noted. Cardiovascular: No deficits noted. Respiratory: No deficits noted. GI: No signs and/or symptoms were reported involving the gastrointestinal system. : No signs and/or symptoms were reported regarding the genitourinary system. Derm: No deficits noted. Musculoskeletal: Circulation, motion, and sensation intact. Range of motion: intact in all extremities. Historical: - Allergies: 11:17 Bactrim; ca1 11:17 seasonal; ca1 - Home Meds: 11:20 Advair Diskus 250-50 mcg/dose Inhl dsdv 1 puff 2 times per day [Active]; ProAir HFA 90 ca1 mcg/actuation inhalation HFAA 2 puffs twice a day [Active]; losartan 100 mg Oral tab 1 tab once daily [Active]; Bystolic 10 mg oral tab 1 tab once daily [Active]; atorvastatin 10 mg oral tab 1 tab once daily [Active]; tamsulosin 0.4 mg oral cp24 1 cap twice a week [Active]; - PMHx: 11:17 GALLSTONES; Hypertension; Asthma; ca1 11:20 High Cholesterol; ca1 - PSHx: 11:17 Cholecystectomy; ca1 - Immunization history:: Adult Immunizations up to date. - Social history:: Smoking status: Patient/guardian denies using tobacco, the patient reports quitting approximately 15 years ago. - Family history:: not pertinent. Screenin:32 Abuse screen: Denies threats or abuse. Denies injuries from another. Nutritional bp screening: No deficits noted. Tuberculosis screening: No symptoms or risk factors identified. Fall Risk None identified. Assessment: 11:15 General: SEE TRIAGE NOTE. bp 12:32 Reassessment: PT D/C HOME AMBULATORY, DX WITH FASCIAL TEAR. bp Vital Signs: 11:14 BP 157 / 74; Pulse 61; Resp 16 S; Temp 98.3(O); Pulse Ox 100% on R/A; Weight 81.65 kg ca1 (R); Height 5 ft. 7 in. (170.18 cm) (R); Pain 0/10; 12:32 BP 147 / 75; Pulse 51; Resp 17; Temp 98.5; Pulse Ox 100% ; bp 11:14 Body Mass Index 28.19 (81.65 kg, 170.18 cm) ca1 ED Course: 10:46 Patient arrived in ED. ag5 11:17 Triage completed. ca1 11:17 Arm band placed on right wrist. ca1 11:22 Nima Allen RN is Primary Nurse. bp 11:25 Sunny Low MD is Attending Physician. mike 12:19 Yong Santiago MD is Referral Physician. mike 12:32 Patient has correct armband on for positive identification. Placed in gown. Bed in low bp position. Call light in reach. Side rails up X2. 12:32 No provider procedures requiring assistance completed. Patient did not have IV access bp during this emergency room visit. Administered Medications: No medications were administered Outcome: 12:20 Discharge ordered by . mike 12:39 Discharged to home ambulatory. bp 12:39 Condition: stable 12:39 Discharge instructions given to patient, Instructed on discharge instructions, follow up and referral plans. medication usage, Demonstrated understanding of instructions, follow-up care, medications, Prescriptions given X 1. 12:41 Patient left the ED. bp Signatures: Sunny Low MD MD cha Peltier, Brian, RN RN bp Rosita Shoemaker RN RN [facility] Maria Luisa Palafox ag5
--- NOTE | 2019-12-14 12:20 | EDPHYS ---
Physician Documentation [facility] [place] Name: Adrian Kang Age: 59 yrs Sex: Male : 1960 Arrival Date: 12/14/2019 Time: 10:46 Bed 6 Private MD: ED Physician Sunny Low HPI: 12/13 12:10 This 59 yrs old Male presents to ER via Ambulatory with complaints of Leg mike Problem. 12:10 The patient presents with pain, that is acute. The complaints affect the lateral aspect mike of right calf. Context: The problem was sustained at home. Onset: The symptoms/episode began/occurred just prior to arrival, this morning. Modifying factors: The symptoms are alleviated by nothing. the symptoms are aggravated by movement. Associated signs and symptoms: The patient has no apparent associated signs or symptoms. Treatment prior to arrival includes: no previous treatment. Severity of symptoms: At their worst the symptoms were mild, in the emergency department the symptoms have improved, moderately. The patient has not experienced similar symptoms in the past. Historical: - Allergies: 11:17 Bactrim; ca1 11:17 seasonal; ca1 - Home Meds: 11:20 Advair Diskus 250-50 mcg/dose Inhl dsdv 1 puff 2 times per day [Active]; ProAir HFA 90 ca1 mcg/actuation inhalation HFAA 2 puffs twice a day [Active]; losartan 100 mg Oral tab 1 tab once daily [Active]; Bystolic 10 mg oral tab 1 tab once daily [Active]; atorvastatin 10 mg oral tab 1 tab once daily [Active]; tamsulosin 0.4 mg oral cp24 1 cap twice a week [Active]; - PMHx: 11:17 GALLSTONES; Hypertension; Asthma; ca1 11:20 High Cholesterol; ca1 - PSHx: 11:17 Cholecystectomy; ca1 - Immunization history:: Adult Immunizations up to date. - Social history:: Smoking status: Patient/guardian denies using tobacco, the patient reports quitting approximately 15 years ago. - Family history:: not pertinent. ROS: 12:10 Constitutional: Negative for fever, chills, and weight loss, Eyes: Negative for injury, mike pain, redness, and discharge, ENT: Negative for injury, pain, and discharge, Neck: Negative for injury, pain, and swelling, Cardiovascular: Negative for chest pain, palpitations, and edema, Respiratory: Negative for shortness of breath, cough, wheezing, and pleuritic chest pain, Abdomen/GI: Negative for abdominal pain, nausea, vomiting, diarrhea, and constipation, Back: Negative for injury and pain, : Negative for injury, bleeding, discharge, and swelling, Skin: Negative for injury, rash, and discoloration, Neuro: Negative for headache, weakness, numbness, tingling, and seizure, Psych: Negative for depression, anxiety, suicide ideation, homicidal ideation, and hallucinations, Allergy/Immunology: Negative for hives, rash, and allergies, Endocrine: Negative for neck swelling, polydipsia, polyuria, polyphagia, and marked weight changes, Hematologic/Lymphatic: Negative for swollen nodes, abnormal bleeding, and unusual bruising. 12:10 MS/extremity: Positive for pain, swelling, of the lateral aspect of right calf. Exam: 12:10 Constitutional: This is a well developed, well nourished patient who is awake, alert, mike and in no acute distress. Head/Face: Normocephalic, atraumatic. Eyes: Pupils equal round and reactive to light, extra-ocular motions intact. Lids and lashes normal. Conjunctiva and sclera are non-icteric and not injected. Cornea within normal limits. Periorbital areas with no swelling, redness, or edema. ENT: Nares patent. No nasal discharge, no septal abnormalities noted. Tympanic membranes are normal and external auditory canals are clear. Oropharynx with no redness, swelling, or masses, exudates, or evidence of obstruction, uvula midline. Mucous membranes moist. Neck: Trachea midline, no thyromegaly or masses palpated, and no cervical lymphadenopathy. Supple, full range of motion without nuchal rigidity, or vertebral point tenderness. No Meningismus. Chest/axilla: Normal chest wall appearance and motion. Nontender with no deformity. No lesions are appreciated. Cardiovascular: Regular rate and rhythm with a normal S1 and S2. No gallops, murmurs, or rubs. Normal PMI, no JVD. No pulse deficits. Respiratory: Lungs have equal breath sounds bilaterally, clear to auscultation and percussion. No rales, rhonchi or wheezes noted. No increased work of breathing, no retractions or nasal flaring. Abdomen/GI: Soft, non-tender, with normal bowel sounds. No distension or tympany. No guarding or rebound. No evidence of tenderness throughout. Back: No spinal tenderness. No costovertebral tenderness. Full range of motion. Skin: Warm, dry with normal turgor. Normal color with no rashes, no lesions, and no evidence of cellulitis. Neuro: Awake and alert, GCS 15, oriented to person, place, time, and situation. Cranial nerves II-XII grossly intact. Motor strength 5/5 in all extremities. Sensory grossly intact. Cerebellar exam normal. Normal gait. Psych: Awake, alert, with orientation to person, place and time. Behavior, mood, and affect are within normal limits. 12:10 Musculoskeletal/extremity: Extremities: grossly normal except: noted in the lateral aspect of right calf: pain, mild , small fascial defect, ny , swelling has gone down, DVT Exam: No signs of deep vein thrombosis. no pain, no swelling, no tenderness, negative Homans' sign noted on exam, no appreciated bluish discoloration, no erythema, no increased warmth, no hx dvt. no pe, no trauma, no hcs, no stasis. Vital Signs: 11:14 BP 157 / 74; Pulse 61; Resp 16 S; Temp 98.3(O); Pulse Ox 100% on R/A; Weight 81.65 kg ca1 (R); Height 5 ft. 7 in. (170.18 cm) (R); Pain 0/10; 12:32 BP 147 / 75; Pulse 51; Resp 17; Temp 98.5; Pulse Ox 100% ; bp 11:14 Body Mass Index 28.19 (81.65 kg, 170.18 cm) ca1 MDM: 11:25 Patient medically screened. mike 12:13 Data reviewed: vital signs, nurses notes. mike 12:18 Differential diagnosis: dislocation, contusion, tendonitis. Data interpreted: Cardiac mike monitor: not applicable for this patient encounter. rate is 61 beats/min, rhythm is regular, Pulse oximetry: on room air is 100 %. Counseling: I had a detailed discussion with the patient and/or guardian regarding: the historical points, exam findings, and any diagnostic results supporting the discharge/admit diagnosis, the need for outpatient follow up, for definitive care, a orthopedic surgeon. Administered Medications: No medications were administered Disposition: 12/14/19 12:20 Discharged to Home. Impression: Pain in right lower leg - fascial defect. - Condition is Stable. - Discharge Instructions: Musculoskeletal Pain, Cryotherapy, [id number], Cryotherapy. - Prescriptions for Motrin IB 200 mg Oral Tablet - take 2 tablet by ORAL route every 8 hours As needed as needed with food; 30 tablet. - Medication Reconciliation Form, Thank You Letter, Antibiotic Education, Prescription Opioid Use form. - Follow up: Private Physician; When: 2 - 3 days; Reason: Recheck today's complaints, Continuance of care, Re-evaluation by your physician. Follow up: Yong Santiago MD; When: 2 - 3 days; Reason: Recheck today's complaints, Re-evaluation by your physician. - Problem is new. - Symptoms have improved. Signatures: Sunny Low MD MD cha Peltier, Brian, RN RN Rosita Sanchez RN RN [facility] Corrections: (The following items were deleted from the chart) 12:41 12:20 12/14/2019 12:20 Discharged to Home. Impression: Pain in right lower leg - bp fascial defect. Condition is Stable. Forms are Medication Reconciliation Form, Thank You Letter, Antibiotic Education, Prescription Opioid Use. Follow up: Private Physician; When: 2 - 3 days; Reason: Recheck today's complaints, Continuance of care, Re-evaluation by your physician. Follow up: Dr. Yong Santiago; When: 2 - 3 days; Reason: Recheck today's complaints, Re-evaluation by your physician. Problem is new. Symptoms have improved. mike
[2019-12-14 12:46] VITALS: O2SAT 100
[2019-12-14 12:48] VITALS: BP 147/75; TEMP 98.5
== END 2019-12-14 12:41 | disposition home or self-care (01) ==
LOC: ER 10:44
DX: M62.89 Other specified disorders of muscle (principal); I10 Essential (primary) hypertension; E78.00 Pure hypercholesterolemia, unspecified; J45.909 Unspecified asthma, uncomplicated; Z88.1 Allergy status to other antibiotic agents
CPT/HCPCS: 99282